=== PATIENT | female | born 1945 | race Caucasian/White ===

== ENCOUNTER 2023-06-06 16:26 | Emergency (ER) | payer OTHER, MEDICAID ==
[~2023-06-06] VITALS: Ht 157.5 cm; Wt 51.3 kg
[2023-06-06 18:01] VITALS: BP 134/77; TEMP 98.6; O2SAT 96
== END 2023-06-06 18:01 ==
LOC: ER 16:35
DX: S09.90XA Unspecified injury of head, initial encounter (principal); R51.9 Headache, unspecified; R41.82 Altered mental status, unspecified; F03.90 Unspecified dementia, unspecified severity, without behavioral disturbance, psychotic disturbance, mood disturbance, and anxiety; W18.30XA Fall on same level, unspecified, initial encounter; Y93.89 Activity, other specified; Y92.89 Other specified places as the place of occurrence of the external cause; Y99.8 Other external cause status
CPT/HCPCS: 70450-TC; 72125-TC